=== PATIENT | male | born 1980 | race Hispanic/Latino ===

== ENCOUNTER 2022-09-14 11:21 | Emergency (ER) | payer OTHER ==
[~2022-09-14] VITALS: Ht 165.1 cm; Wt 90.7 kg
[2022-09-14 13:02] LABS: BASOPHILS % (AUTO) 0.2 % (0.0-5.0); EOSINOPHILS % (AUTO) 0.5 % (0.0-8.0); HEMATOCRIT 45.5 % (42-54); MEAN CORPUSCULAR HEMOGLOBIN 31.8 pg (27.0-33.0); MEAN CORPUSCULAR HGB CONC 34.5 g/dL (32.0-36.0); MEAN CORPUSCULAR VOLUME 92.1 fL (79-99); MONOCYTES % (AUTO) 8.6 % (3.0-13.0); NEUTROPHILS % (AUTO) 80.3 % (40.0-77.0); PLATELET COUNT (AUTO) 259 K/uL (130-400); RED BLOOD CELL COUNT(AUTO) 4.94 MIL/uL (4.50-6.20); RED CELL DISTRIBUTION WIDTH 12.1 % (11.0-15.5); WHITE BLOOD COUNT (AUTO) 10.5 K/uL (4.8-10.8)
[2022-09-14 13:12] LABS: APPEARANCE,URINE CLEAR (CLEAR); BILIRUBIN,URINE NEGATIVE (NEGATIVE); COLOR,URINE YELLOW (YELLOW); GLUCOSE, URINE (UA) >=1000 mg/dL (NEGATIVE); KETONES,URINE 20 mg/dL (NEGATIVE); LEUKOCYTE ESTERASE ,URINE NEGATIVE Leu/uL (NEGATIVE); MUCUS,URINE RARE LPF (None Seen); NITRATE,URINE NEGATIVE (NEGATIVE); OCCULT BLOOD,URINE NEGATIVE (NEGATIVE); PROTEIN,URINE NEGATIVE (NEGATIVE)
[2022-09-14 13:26] LABS: POTASSIUM 3.5 mmol/L (3.5-5.1)
[2022-09-14 13:30] LABS: ALBUMIN 3.4 g/dL (3.5-5.0); TOTAL PROTEIN, SERUM 7.2 g/dL (6.0-8.3)
[2022-09-14] MEDS ORDERED: NAPR500T6 PO (14:54)
[2022-09-14] MEDS ORDERED: AMOX1TAB16 PO (14:54)
[2022-09-14 14:57] VITALS: BP 134/80
[2022-09-14] MEDS ORDERED: KETOROLAC 60 MG VIAL (30MG/ML) IM ONE (15:00)
[2022-09-14] MEDS ORDERED: CEFTRIAXONE 1G VIAL IM ONE (15:00)
== END 2022-09-14 15:29 | disposition home or self-care (01) ==
LOC: EDH 11:21
DX: K04.7 Periapical abscess without sinus (principal)
CPT/HCPCS: 99284; 80053; 85025; 83605; 81001; 36415; 96372 ×2; J0696; J1885